=== PATIENT | female | born 1995 | race Caucasian/White ===

== ENCOUNTER 2019-01-15 12:01 | Emergency (ER) | payer BC ==
[~2019-01-15] VITALS: Ht 160 cm; Wt 53.1 kg
[2019-01-15 12:49] VITALS: BP 130/86
[2019-01-15] MEDS ORDERED: IBUPROFEN 600 MG TAB PO ONE (13:30)
== END 2019-01-15 13:40 | disposition home or self-care (01) ==
LOC: ER 12:01
DX: R51 Headache (principal); V43.52XA Car driver injured in collision with other type car in traffic accident, initial encounter; Y93.I9 Activity, other involving external motion; Y92.410 Unspecified street and highway as the place of occurrence of the external cause; Y99.8 Other external cause status
CPT/HCPCS: 70450; 81025